=== PATIENT | male | born 1965 | race Caucasian/White ===

== ENCOUNTER → 2019-03-15 | Outpatient (CLI) | payer BC | END | disposition home or self-care (01) | LOC: LABWHC1 12:13 | PROVIDERS: ATTEND Family Medicine | DX: R07.89 Other chest pain (principal) | CPT/HCPCS: 36415; 93005 ==

== ENCOUNTER → 2020-09-17 | Outpatient (CLI) | payer BC ==
--- NOTE | 2020-09-17 13:50 | MR ---
EXAMINATION TYPE: MR Prostate wo/w con DATE OF EXAM: 09/17/2020 COMPARISON: None. IMAGE QUALITY: Good. INDICATION: Elevated PSA PSA: 11.4 ng/ml June 26, 2020. Recent Biopsy and Date: May 06, 2015 Pathology Report (If Applicable): Benign results. TECHNIQUE: Examination was performed using a 3T MRI without an endorectal coil. Multiparametric imaging was perf ormed with T2 mutliplanar sequences, axial diffusion weighted imaging and dynamic contrast enhanced i maging, utilizing 10 mL intravenous Gadavist gadolinium contrast. FINDINGS: There is no clinically significant cancer identified. PROSTATE VOLUME: 8.6 cm SI x 7.3 cm AP x 7.2 cm LR Vol= 236.7 cc Predicted PSA = 28.4. PSA DENSITY: 0.05 ng/ml/cc Somewhat then peripheral zone with right-sided areas of slightly indistinct hypointense signal. No in creased signal on diffusion-weighted imaging were mild to moderate hypointense signal on ADC mapping. There is markedly heterogeneous and markedly enlarged transitional zone. There is roughly 1.1 cm focu s of heterogeneous diminished signal with obscured margins on T2-weighted images in the mid zone left prostate slightly lateral aspect axial image 21 series 601. Possibly some smaller areas of low T2 si gnal. No areas of suspicious restricted diffusion. Prostate capsule is maintained. Seminal vesicles are within normal limits. No suspicious adenopathy. Some diverticula in the sigmoid colon. Urinary bladder shows mild to moderate wall thickening and wal l trabeculation. Visualized osseous structures are intact. No groin mass or adenopathy noted. IMPRESSION: Markedly enlarged prostate consistent with BPH. A focus of clinically significant cancer is not identified. Highest Assessment Category: 3 MRI Stage: T0 N0 M0 based on review of pelvic images. False negative rates for MRI range from 5-20% depending on risk profile. Assessment Categories: 1 ? Very low (clinically significant cancer is highly unlikely to be present) 2 ? Low (clinically significant cancer is unlikely to be present) 3 ? Intermediate (the presence of clinically significant cancer is equivocal) 4 ? High (clinically significant cancer is likely to be present) 5 ? Very high (clinically significant cancer is highly likely to be present)
== END | disposition home or self-care (01) ==
LOC: RADMRIMAIN 09:03
PROVIDERS: ATTEND Urology
DX: N40.0 Benign prostatic hyperplasia without lower urinary tract symptoms (principal)
CPT/HCPCS: 72197; A9585

== ENCOUNTER → 2021-10-16 | Outpatient (CLI) | payer BC ==
--- NOTE | 2021-10-17 11:09 | CT ---
EXAMINATION TYPE: CT abdomen pelvis wo/w con DATE OF EXAM: 10/16/2021 COMPARISON: None HISTORY: hematuria, left flank pian CT DLP: 2208.3 mGycm Automated exposure control for dose reduction was used. CONTRAST: CT scan of the abdomen pelvis is performed with IV Contrast, patient injected with 100 mL of Isovue 3 00. FINDINGS- LUNG BASES-subsegmental groundglass changes posteriorly lung base on the right apical atelectasis.. LIVER/GB- No gross abnormality is appreciated. PANCREAS- No gross abnormality is seen. SPLEEN- No gross abnormality is seen. ADRENALS- No gross abnormality is seen. KIDNEYS/BLADDER- Right kidney: Noncontrast imaging demonstrates a small lower pole 3 mm calculus but no hydronephrosis . Post contrast imaging demonstrates no solid or cystic mass. Left kidney: There is a lower pole calyx extending a length of 11.8 mm within the infundibulum and ca lyces of the lower pole. Adjacent 2 mm calculus also noted. No hydronephrosis. Within the anterior mid pole and posterior upper pole left kidney there is a 3 mm hypodensity too sma ll to characterize. There also is an exophytic lesion extending off the posterior margin of the mid l eft kidney measuring 6 Hounsfield units compatible with simple cyst. No definite suspicious sizable l esion seen. BOWEL- no bowel dilatation. Normal appendix. LYMPH NODES- No greater than 1cm abdominal or pelvic lymph nodes areappreciated. OSSEOUS STRUCTURES- No significant abnormality is seen. OTHER- prostate is markedly enlarged as noted by prior MRI appears heterogeneous. Correlate clinical ly. Small nodule seen adjacent to the bladder on the right in short axis VII mm May represent shotty lymph nodes. See axial image 80. This is retrospectively stable from the MRI 2020. IMPRESSION- 1. Bilateral nonobstructing nephrolithiasis as measured above. No suspicious appearing renal lesion. 2. Marked prostate enlargement and heterogeneity correlate clinically. Correlate for mild cystitis. A ssessment of bladder is limited as delayed imaging does not include any contrast within the bladder. Therefore this limits assessment for wall thickening. If there is concern for bladder abnormality cor relate with ultrasound particularly given the limitation on current exam.
== END | disposition home or self-care (01) ==
LOC: RADCTMAIN 17:43
PROVIDERS: ATTEND Urology
DX: N20.0 Calculus of kidney (principal); N40.0 Benign prostatic hyperplasia without lower urinary tract symptoms
CPT/HCPCS: 74178; Q9967

== ENCOUNTER 2021-11-06 07:09 | Day surgery (SDC) | payer BC ==
[2021-11-05 09:36] VITALS: BMI 28.8
--- NOTE | 2021-11-05 22:47 | P.GSHP ---
History of Present Illness H&P Date: 11/05/21 Chief Complaint: Hematuria The patient is a 56-year-old white male with a persistently elevated PSA level, which appears to be due to BPH. MRI 1 year ago revealed a prostate volume of 237 mL. He has undergone prostate biopsies on 3 occasions, showing no evidence of malignancy. He has recently experienced gross hematuria along with flank discomfort. A CT urogram showed a 4 mm right lower pole renal calculus, as well as a left lower pole calculus with a maximal length of 12 mm. An additional adjacent 2 mm calculus was seen. He was offered the options of observation, extracorporal shockwave lithotripsy (ESWL), and ureteroscopy with laser lithotripsy. He has elected to undergo the latter. - Genitourinary (Male) Genitourinary: Reports flank pain, Reports hematuria, Reports kidney stones Past Medical History Past Medical History: Diabetes Mellitus, GERD/Reflux Additional Past Medical History / Comment(s): kidney stones, heart murmur. Hx. of GERD. Enlarged prostate. Monoclonal antx. in 2020. History of Any Multi-Drug Resistant Organisms: None Reported Additional Past Surgical History / Comment(s): Vasectomy, Bx. of prostate Past Anesthesia/Blood Transfusion Reactions: No Reported Reaction Smoking Status: Never smoker - Past Family History Mother Family Medical History: Cancer, COPD, Diabetes Mellitus Additional Family Medical History / Comment(s): Breast Medications and Allergies Home Medications Medication Instructions Recorded Confirmed Type Insulin NPH Human Isophane 0 units SQ AC-TID 11/05/21 11/05/21 History [Novolin N Flexpen] metFORMIN HCL ER [Glucophage XR] 150 mg PO AC-SUPPER 11/05/21 11/05/21 History Allergies Allergy/AdvReac Type Severity Reaction Status Date / Time bee pollen Allergy Anaphylaxis Verified 11/05/21 09:42 Surgical - Exam - General well developed, well nourished, no distress - Respiratory normal respiratory effort - Abdomen Abdomen: soft, non tender, no guarding, no rigid, no rebound - Genitourinary Circumcised phallus with 2 condyloma noted at the right penile base. The urethral meatus is normal. The scrotum and testes are normal. - Rectum Rectum: normal sphincter tone, no masses - Psychiatric oriented to time, oriented to person, oriented to place, speech is normal, memory intact Results - Imaging CT scan - abdomen: report reviewed, image reviewed Assessment and Plan (1) Calculus of kidney Status: Acute Code(s): N20.0 - CALCULUS OF KIDNEY SNOMED Code(s): 99830583 Plan: Cystoscopy, bilateral ureteroscopy with Holmium laser lithotripsy and possible stone basketing, bilateral ureteral stent insertion. The procedures been reviewed in detail with the patient. He is aware of potential risks, which include anesthesia, bleeding, infection, and ureteral injury.
[~2021-11-06 07:09] MED LIST: LACTATED RINGERS 1,000 ML IV SCH
--- NOTE | 2021-11-06 07:27 | XR ---
EXAMINATION TYPE: XR KUB DATE OF EXAM: 11/06/2021 Comparison: CT 10/16/2021 Clinical History: 56-year-old male urology follow-up, Lithotripsy on 11/06/2021 Findings: Moderate stool burden. Nonobstructive bowel gas pattern. A 7 mm calculus within the right kidney. Approximately 4-5 clustered small calcifications left kidney measuring up to 3 mm. A series of 3 phleboliths in the left side of the pelvis. Impression: Bilateral renal calculi measuring up to 7 mm on the right. Clustered small calculi in the left measur ing up to 3 mm. Left-sided pelvic phleboliths. Moderate stool burden. The marked prostatomegaly noted on the patient's CT is not well demonstrated radiographically.
[2021-11-06] MEDS ORDERED: ONDANSETRON 4 MG/2 ML VIAL ONE (07:43)
[2021-11-06] MEDS ORDERED: DEXAMETHASONE SOD PHOSPHATE 4 MG/ML 1 ML VIAL IV ONE (07:48)
[2021-11-06 07:54] LABS: Glucose,Whole Blood 157 mg/dL (75-99)
[2021-11-06] MEDS ORDERED: KETOROLAC 15 MG/ML 1 ML VIAL ONE ×2 (08:40→14:12)
[2021-11-06] MEDS ORDERED: GLYCOPYRROLATE 0.2 MG/ML 2 ML VIAL ONE (08:40)
[2021-11-06] MEDS ORDERED: LIDOCAINE 1% INJ 10MG/ML (20 ML MDV) ONE (08:40)
[2021-11-06] MEDS ORDERED: PROPOFOL 10 MG/ML 20 ML VIAL IV ONE (08:40)
[2021-11-06] MEDS ORDERED: NALOXONE 0.4 MG/ML 1 ML VIAL ONE (08:40)
[2021-11-06] MEDS ORDERED: NEOSTIGMINE 1 MG/ML 10 ML VIAL ONE (08:40)
[2021-11-06] MEDS ORDERED: MIDAZOLAM 2 MG/2 ML VIAL ONE (08:40)
[2021-11-06] MEDS ORDERED: PHENYLEPHRINE-0.9% NACL SYG 1,000 MCG/10 ML SYRINGE ONE (08:40)
[2021-11-06] MEDS ORDERED: fentaNYL (PF) 50 MCG/ML 2 ML AMP ONE (08:40)
[2021-11-06] MEDS ORDERED: SUCCINYLCHOLINE CHLORIDE 100 MG/5 ML SYR IV ONE (08:40)
[2021-11-06] MEDS ORDERED: ROCURONIUM 10 MG/ML (5 ML VIAL) IV ONE (08:40)
[2021-11-06] MEDS ORDERED: LACTATED RINGERS 1,000 ML IV ONE (11:32)
[2021-11-06 11:56] VITALS: TEMP 97.1
[2021-11-06 12:06] VITALS: RESP 16
[2021-11-06 12:12] LABS: Glucose,Whole Blood 228 mg/dL (75-99)
[2021-11-06 13:21] VITALS: BP 172/71; PULSE 79
--- NOTE | 2021-11-07 11:42 | FL ---
EXAMINATION TYPE: FL guidance operating room DATE OF EXAM: 11/06/2021 HISTORY: Fluoroscopy time 1 minute and 15 seconds of fluoroscopy provided. IMPRESSION: 1. Fluoroscopy time.
--- NOTE | 2021-11-07 18:44 | P.OP ---
Date of Procedure: 11/06/21 Preoperative Diagnosis: Bilateral renal calculi Postoperative Diagnosis: Same Procedure(s) Performed: Cystoscopy, bilateral ureteroscopy with Holmium laser lithotripsy and stone basketing, bilateral ureteral stent insertion Anesthesia: JANET Surgeon: Esequiel Malave Estimated Blood Loss (ml): 20 IV fluids (ml): 900 Pathology: other (Calculus fragments, sent for chemical analysis) Condition: stable Disposition: PACU Indications for Procedure: The patient is a 56-year-old white male with a persistently elevated PSA level, which appears to be due to BPH. MRI 1 year ago revealed a prostate volume of 237 mL. He has undergone prostate biopsies on 3 occasions, showing no evidence of malignancy. He has recently experienced gross hematuria along with flank discomfort. A CT urogram showed a 4 mm right lower pole renal calculus, as well as a left lower pole calculus with a maximal length of 12 mm. An additional adjacent 2 mm calculus was seen. He was offered the options of observation, extracorporal shockwave lithotripsy (ESWL), and ureteroscopy with laser lithotripsy. He has elected to undergo the latter. Operative Findings: Right renal calculus, removed completely. Multiple left lower pole renal calculi, removed completely. Description of Procedure: The patient was taken to the operating room and placed in the dorsolithotomy position, with legs supported in Teja stirrups. The external genitalia was prepped and draped sterilely. The 30 lens was used to introduce the 21-[place]an Bowers cystoscopic sheath through the urethra and into the bladder under direct vision. The prostatic urethra showed evidence of considerable lateral lobe enlargement, along with a middle lobe that extends intravesically. The bladder was examined in its entirety. Both ureteral orifices were difficult to identify as they were obscured by the median lobe. However, they were of normal anatomic location and configuration, and clear urine effluxed from both. No tumors or foreign bodies were seen. A 0.038 inch Glidewire was passed through the cystoscope. The right ureteral orifice was cannulated, and the Glidewire was advanced up to the renal pelvis. The cystoscope was removed, and an 11/13-[place]an ureteral access catheter was passed over the wire, up to the proximal ureter. The flexible ureteroscope was then passed through the ureteral access catheter sheath and advanced under dir ect vision up to the right kidney. The 4 mm calculus was identified within a lower pole calyx. A 1.9-[place] nitinol basket was used to grasp the calculus and reposition it into an upper pole calyx. The 200 micron Holmium laser probe was passed through the ureteroscope, and lithotripsy was performed. The calculus was dense, and was more amenable to fragmenting and dusting. All calculus fragments were removed using the nitinol basket. As the ureteroscope was withdrawn, the ureter was inspected and showed no evidence of trauma. The Glidewire was passed through the ureteral access catheter sheath, which was removed. The Glidewire was backloaded into the cystoscope, which was passed into the bladder. A 26 cm, 4.8-[place] double-J ureteral stent was placed over the wire. Proper stent positioning was verified fluoroscopically and endoscopically. The string was left attached to the stent. An identical procedure was performed on the left side. Within a lower pole calyx, approximately 6 calculi were identified measuring up to 7 mm in size. These calculi were fragmented in situ, with larger calculus fragments removed via Stone basketing. The largest calculus was repositioned into the renal pelvis and fragmented there. Lithotripsy was continued until there were no residual calculus fragments exceeding 1 mm in size. A ureteral stent was placed, as it was on the contralateral side. The bladder was emptied and the cystoscope removed. The strings attached to the stents were taped to the patient's penis using a Tegaderm dressing. The patient tolerated the procedure well and was taken to the recovery room in stable condition. [facility] [place], [place] Report: Procedure Acuity: Elective Stone Size and Location: 4 mm right lower pole renal calculus. Multiple left lower pole renal calculi, largest 7 mm. Ureteral Dilation: No Ureteral Access Sheath Used: Yes Stone Sent for Analysis: Yes All Stones/Fragments Were Removed with a Basket: Yes Complications: No Preoperative Antibiotics Given: Yes Stent Placed: Yes If Stent Placed, Was String Left Attached: Yes If Stent Placed, When is it to be Removed: 1 week Discharge Medications: Toradol, tamsulosin
== END 2021-11-06 14:57 | disposition home or self-care (01) ==
LOC: OR 07:09
PROVIDERS: ATTEND Urology
DX: N20.0 Calculus of kidney (principal); E11.9 Type 2 diabetes mellitus without complications; K21.9 Gastro-esophageal reflux disease without esophagitis; N40.0 Benign prostatic hyperplasia without lower urinary tract symptoms; Z79.4 Long term (current) use of insulin; Z79.84 Long term (current) use of oral hypoglycemic drugs; Z91.030 Bee allergy status; Z98.52 Vasectomy status; Z82.5 Family history of asthma and other chronic lower respiratory diseases; Z83.3 Family history of diabetes mellitus; Z80.9 Family history of malignant neoplasm, unspecified
CPT/HCPCS: 82365; 74018; 52356; C2625; C1758 ×4; C1769; J2250; J1100; J2310; J2710; J0690; J2405; J2001; J3010; J1885; J2370; J0330; J2704

== ENCOUNTER → 2022-06-30 | Outpatient (CLI) | payer BC ==
--- NOTE | 2022-06-30 19:19 | MR ---
EXAMINATION TYPE: MR Prostate wo/w con DATE OF EXAM: 06/30/2022 9:33 AM COMPARISON: CT abdomen pelvis 10/16/2021. CLINICAL INDICATION:Male, 56 years old with history of R97.20 ELEVATED PSA; TECHNIQUE: Multi-planar, multi-sequence imaging of the pelvis is performed prior to and following the uncomplicated administration of bolus intravenous gadolinium. CONTRAST: 10 Gadavist Interpretive Criteria: PI-RADS v2.1 SERUM PSA: 17.2 on 05/15/2022 SURGICAL PATHOLOGY: Biopsy report 11/24/2013 FINDINGS: Prostatic dimensions: 7.8 x 9.7 x 6.7 cm. Ellipsoid Volume:265.42 (PSA density=0.06 ng/mL/mL) CENTRAL GLAND (Central and Transition Zones/CZ+TZ): Marked hypertrophy with multiple bilateral, heterogenous appearing hypertrophic stromal nodules, with out suspicious lesion. Median lobe hypertrophy with protrusion into the base of the bladder. (PI-RAD S 2) PERIPHERAL ZONE (PZ): Thin secondary to central gland hypertrophy changes with wedgelike areas of low ADC, and low T2 signa l, No evidence of masslike abnormality, or localized perfusional hypervascularity, to further suggest a focus of clinically significant prostate cancer. Extruded left lateral posterior mid gland/base BP H nodule (PI-RADS 2) SEMINAL VESICLES (SV): Symmetric and unremarkable. PERIPROSTATIC TISSUES: Unremarkable. LYMPH NODES: Borderline enlarged right external iliac lymph node measuring up to 10 mm in short axis series 201 im age 22. Left internal iliac lymph node measuring 7 mm in short axis series 201 image 29. REMAINING PELVIS: Incompletely distended urinary bladder trabeculations. This is likely secondary to chronic bladder ob struction.. No abnormal free or organized intrapelvic fluid collection. No pathologic bowel dilation or mural thickening. Scattered colonic diverticula. OSSEOUS STRUCTURES: No suspicious osseous abnormality. IMPRESSION: 1. No specific features for high-risk prostate cancer. There are numerous circumscribed transition zo ne nodules and low-risk peripheral zone abnormalities (PI-RADS 2). 2. Marked BPH, estimated gland volume 265 mL. 3. Nonspecific prominent pelvic lymph nodes which are similar back to 10/16/2021 CT abdomen pelvis. Wi th regular
== END | disposition home or self-care (01) ==
LOC: RADMRIMAIN 08:18
PROVIDERS: ATTEND Urology
DX: N40.0 Benign prostatic hyperplasia without lower urinary tract symptoms (principal); R97.20 Elevated prostate specific antigen [PSA]
CPT/HCPCS: 72197; A9585

== ENCOUNTER → 2022-11-13 | Outpatient (CLI) | payer SELFPAY ==
[2022-11-14 02:14] LABS: African American GFR (CKD) 113.3 (60.0-200.0); Anion Gap 8.6 mmol/L (10.00-18.00); Blood Urea Nitrogen 19.2 mg/dL (9.0-27.0); Carbon Dioxide 28.4 mmol/L (20.0-27.5); Non-African American GFR(CKD) 97.8 (60.0-200.0); Potassium 4.7 mmol/L (3.5-5.5)
[2022-11-14 02:27] LABS: HCT 45.3 % (39.6-50.0); HGB 14.8 g/dL (13.0-17.0); MCH 29.7 pg (27.0-32.0); MCHC 32.7 g/dL (32.0-37.0); MCV 90.8 fL (80.0-97.0); Mean Platelet Volume 9.8 fL (9.5-12.2); NRBC Per 100 WBC 0 /100 WBCS (0.0-0.0); Platelet Count 281 X 10*3/uL (140-440); RBC 4.99 X 10*6/uL (4.40-5.60); RDW 13.1 % (11.5-14.5); WBC 7.86 X 10*3/uL (4.50-10.00)
== END | disposition home or self-care (01) ==
LOC: LABPAT 15:54
PROVIDERS: ATTEND Internal Medicine
DX: Z01.818 Encounter for other preprocedural examination (principal); R94.39 Abnormal result of other cardiovascular function study; R07.9 Chest pain, unspecified
CPT/HCPCS: 80051; 82565; 84520; 85027

== ENCOUNTER 2022-11-19 10:34 | Day surgery (SDC) | payer BC ==
[2022-11-17 09:47] VITALS: BMI 32.1
[~2022-11-19 10:34] MED LIST changes: +ALPRAZolam 0.25 MG TAB PO PRN; +ALPRAZolam 0.5 MG TAB PO PRN; +ASPIRIN 325 MG TAB PO STA; +ATORVASTATIN 80 MG TAB PO STA; +HEPARIN SODIUM,PORCINE 10,000 UNIT in SODIUM CHLORIDE 0.9% 1,000 ML IRRIGATION PRN; +HEPARIN SODIUM,PORCINE 2,500 UNIT in SODIUM CHLORIDE 0.9% 250 ML IRRIGATION PRN; -LACTATED RINGERS 1,000 ML IV SCH; +NITROGLYCERIN SL TABS 0.4 MG TAB SUBLINGUAL PRN; +SODIUM CHLORIDE 0.9% 1,000 ML in EMPTY BAG 1 BAG IV SCH
[2022-11-19] MEDS ORDERED: SODIUM CHLORIDE 0.9% 1,000 ML IV ONE (10:44)
[2022-11-19 11:06] LABS: Glucose,Whole Blood 161 mg/dL (70-110)
[2022-11-19 11:09] VITALS: RESP 16; TEMP 96.9
[2022-11-19] MEDS ORDERED: fentaNYL (PF) 50 MCG/ML 2 ML AMP ONE (11:55)
[2022-11-19] MEDS ORDERED: VERAPAMIL 2.5 MG/ML 2 ML AMP ONE (11:55)
[2022-11-19] MEDS ORDERED: HEPARIN SODIUM 1,000 UN/ML (10ML VL) ONE (11:57)
[2022-11-19] MEDS ORDERED: fentaNYL (PF) 50 MCG/1 ML VIAL IVP ONE (12:05)
[2022-11-19] MEDS ORDERED: MIDAZOLAM 2 MG/2 ML VIAL IVP ONE (12:05)
[2022-11-19] MEDS ORDERED: LIDOCAINE 1% INJ 10MG/ML (5 ML VIAL-PF) SQ ONE (12:06)
[2022-11-19] MEDS ORDERED: VERAPAMIL SYRINGE (5 MG/10 ML) INTRAARTER ONE (12:12)
[2022-11-19] MEDS ORDERED: HEPARIN SODIUM 1,000 UN/ML (10ML VL) IV ONE (12:14)
[2022-11-19] MEDS ORDERED: IOPAMIDOL-370 200ML BTL INJ ONE (12:18)
[2022-11-19 16:20] VITALS: BP 135/70; PULSE 66
--- NOTE | 2022-11-19 16:38 | P.CARDCATH ---
Description of Procedure: PROCEDURES PERFORMED: Left heart catheterization, bilateral coronary angiography INDICATION: Abnormal stress test CONSENT:I have discussed the risks, benefits and alternative therapies for the above-mentioned procedure and for both sedation/analgesia as well as necessary blood product administration, if indicated, as they pertain to this patient. The patient has indicated understanding and acceptance of the risks and procedures discussed. PROCEDURE: After the risks, benefits and alternatives of the above mentioned procedure explained in detail with the patient, informed consent was obtained. Patient was taken to the catheterization lab and prepped and draped in usual fashion. 1% lidocaine was used to anesthetize the right radial artery. A 6- Bahamian sheath was placed in the right radial artery using modified Seldinger technique. Left coronary angiography was performed with a 5-B[place]amian JL 3.5 catheter and right coronary angiography was performed with a 5-[place]ian JR5 catheter in various views. A 5-[place]ian FR5 catheter was inserted into the left ventricle and pressure measurements were obtained. The right radial sheath was removed and a TR band was placed with hemostasis achieved. The patient tolerated the procedure well. Patient was transported back to the post catheterization holding area in stable condition. Conscious Sedation: Patient was monitored under the direct supervision of myself for conscious sedation using Versed and fentanyl for a total duration of 19 minutes HEMODYNAMICS: Aorta: 119/57 LV: 121/4, LVEDP 8 SELECTIVE CORONARY ARTERIOGRAPHY: LEFT MAIN: The left main is a large caliber vessel which bifurcates into the LAD and circumflex. There is no significant stenosis. LEFT ANTERIOR DESCENDING CORONARY ARTERY: LAD is a large caliber vessel which wraps around to the apex. There is mild bridging of the mid LAD. There is no significant stenosis. LEFT CIRCUMFLEX CORONARY ARTERY: Left circumflex is a moderate caliber vessel without significant stenosis. RIGHT CORONARY ARTERY: The right coronary artery is a large caliber vessel which gives off a PDA and PLV branch and is the dominant vessel. There is no significant stenosis. FINAL IMPRESSION: 1. Normal coronary arteries as described above. 2. Normal left sided filling pressures PLAN: 1. Aggressive risk factor modification per most recent ACC/AHA guidelines. 2. Follow-up in the office in 1-2 weeks.
== END 2022-11-19 15:40 | disposition home or self-care (01) ==
LOC: CATHCVL 10:34
PROVIDERS: ATTEND Internal Medicine
DX: R94.39 Abnormal result of other cardiovascular function study (principal); I51.7 Cardiomegaly; I45.10 Unspecified right bundle-branch block; I44.4 Left anterior fascicular block; E11.9 Type 2 diabetes mellitus without complications; I77.819 Aortic ectasia, unspecified site; E78.5 Hyperlipidemia, unspecified; Z79.4 Long term (current) use of insulin; Z79.84 Long term (current) use of oral hypoglycemic drugs; Z79.82 Long term (current) use of aspirin; Z79.899 Other long term (current) drug therapy; Z82.49 Family history of ischemic heart disease and other diseases of the circulatory system
CPT/HCPCS: 93458; 99152; C1769; C1894; J2250; J2001; J1644; J3010; Q9967

== ENCOUNTER → 2022-11-26 | Outpatient (CLI) | payer BC | END | disposition home or self-care (01) | LOC: LABWHC1 10:27 | PROVIDERS: ATTEND Urology | DX: R97.20 Elevated prostate specific antigen [PSA] (principal) | CPT/HCPCS: 36415; 84153 ==

== ENCOUNTER → 2023-05-19 | Outpatient (CLI) | payer SELFPAY ==
[2023-05-19 19:29] LABS: Chol/HDL Ratio 2.29 Ratio; LDL Cholesterol,Calculated 37.2 mg/dL (0.0-131.0); VLDL Calculation 10.68 mg/dL (5.00-40.00)
== END | disposition home or self-care (01) ==
LOC: LABWHC1 12:44
PROVIDERS: ATTEND Internal Medicine Clinical Cardiac Electrophysiology
DX: E78.5 Hyperlipidemia, unspecified (principal); R97.20 Elevated prostate specific antigen [PSA]
CPT/HCPCS: 36415; 80061; 84153

== ENCOUNTER → 2023-06-24 | Outpatient (CLI) | payer BC ==
[2023-06-25 02:28] LABS: ALT 21 U/L (10-49); AST 17 U/L (14-35); Albumin 4.4 g/dL (3.8-4.9); Albumin/Globulin Ratio 1.83 Ratio (1.60-3.17); Alkaline Phosphatase 83 U/L (41-126); BUN/Creat Ratio 27.14 Ratio (12.00-20.00); Calcium 9.3 mg/dL (8.7-10.3); Carbon Dioxide 26.9 mmol/L (21.6-31.8); Chloride 104 mmol/L (96-109); Globulin 2.4 g/dL (1.6-3.3); Glucose 216 mg/dL (70-110); Potassium 4.6 mmol/L (3.5-5.5); Sodium 140 mmol/L (135-145); Total Bilirubin 0.5 mg/dL (0.3-1.2); Total Protein 6.8 g/dL (6.2-8.2)
[2023-06-25 02:57] LABS: Basophils # (A) 0.04 X 10*3/uL (0.00-0.10); Basophils % (A) 0.6 %; Eosinophils # (A) 0.18 X 10*3/uL (0.04-0.35); Eosinophils % (A) 2.6 %; HCT 47.5 % (39.6-50.0); HGB 15.1 g/dL (13.0-17.0); Lymphocytes # (A) 2.09 X 10*3/uL (0.90-5.00); Lymphocytes % (A) 30.2 %; MCH 29.2 pg (27.0-32.0); MCHC 31.8 g/dL (32.0-37.0); MCV 91.9 FL (80.0-97.0); Mean Platelet Volume 9.2 FL (9.5-12.2); Monocytes # (A) 0.64 X 10*3/uL (0.20-1.00); Monocytes % (A) 9.2 %; NRBC Per 100 WBC 0 X 10*3/uL (0.00-0.01); Neutrophils # (A) 3.96 X 10*3/uL (1.80-7.70); Neutrophils % (A) 57.1 %; Platelet Count 279 X 10*3/uL (140-440); RBC 5.17 X 10*6/uL (4.40-5.60); RDW 13.6 % (11.5-14.5); WBC 6.93 X 10*3/uL (4.50-10.00)
[2023-06-25 04:16] LABS: Appearance,Urine Clear (Clear); Bacteria,Urine Trace; Bilirubin,Urine Negative (Negative); Blood,Urine Moderate (Negative); Color,Urine Yellow (Yellow); Ketones,Urine Negative (Negative); Nitrite,Urine Negative (Negative); Specific Gravity,Urine >1.035 (1.001-1.030)
== END | disposition home or self-care (01) ==
LOC: LABPAT 13:17
PROVIDERS: ATTEND Urology
DX: Z01.812 Encounter for preprocedural laboratory examination (principal); N40.1 Benign prostatic hyperplasia with lower urinary tract symptoms; N13.8 Other obstructive and reflux uropathy; R31.29 Other microscopic hematuria
CPT/HCPCS: 80053; 81001; 85025; 86850; 86900; 86901; 87086

== ENCOUNTER 2023-07-01 05:43 | Day surgery (SDC) | payer BC ==
[2023-06-28 09:18] VITALS: BMI 29.5
--- NOTE | 2023-06-28 11:43 | P.HPIHPCON ---
History of Present Illness H&P Date: 06/28/23 Chief Complaint: BPH This is a 57-year-old male with history of a 265 g prostate. He is symptomatic from his prostatic enlargement. Option of a robotic simple prostatectomy was discussed with him in detail. Aware of the risk which includes but not limited to bleeding, infection, urinary incontinence, erectile dysfunction, retrograde ejaculation, and injury to nearby organs. Risk of anesthesia was also discussed. He understood all the risk and agreed to proceed. Consent for Procedure: I have explained the operation/procedure to the patient, including the risks, benefits, side effects, alternative therapies (including not receiving the proposed treatment or service), the likelihood of the patient achieving his/her goals, and potential recuperation problems for the procedure/sedation/analgesia, as well as any blood products, if indicated. I also explained to the patient the risks, benefits and side effects of the alternatives, as well as the risks related to not receiving the proposed procedure, care, treatment, or services. 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 of prostate, lithotripsy Past Anesthesia/Blood Transfusion Reactions: No Reported Reaction Additional Past Anesthesia/Blood Transfusion Reaction / Comment(s): after lithotripsy pt had jaw pain for about a year Past Psychological History: No Psychological Hx Reported Smoking Status: Never smoker Past Alcohol Use History: None Reported Past Drug Use History: None Reported - Past Family History Mother Family Medical History: Cancer, COPD, Diabetes Mellitus, Myocardial Infarction (DC) Additional Family Medical History / Comment(s): Breast cancer. Medications and Allergies Home Medications Medication Instructions Recorded Confirmed Type Tamsulosin [Flomax] 0.4 mg PO DAILY #14 cap 11/06/21 06/28/23 Rx Insulin Aspart [NovoLOG Flexpen] 0 units SQ TID-W/MEALS PRN 11/17/22 06/28/23 History Insulin Glargine/Lixisenatide 19 units SQ W/SUPPER 11/17/22 06/28/23 History [Soliqua 100 Unit-33 Mcg/ml Pen] Losartan [Cozaar] 50 mg PO DAILY 11/17/22 06/28/23 History Rosuvastatin [Crestor] 20 mg PO DAILY 11/17/22 06/28/23 History metFORMIN HCL ER [Glucophage XR] 750 mg PO DAILY 11/17/22 06/28/23 History Empagliflozin [Jardiance] 25 mg PO DAILY 06/28/23 06/28/23 History Allergies Allergy/AdvReac Type Severity Reaction Status Date / Time bee pollen Allergy Anaphylaxis Verified 06/28/23 08:53 Surgical - Exam - General no distress, no pain - Eyes normal ocular movement, no pale - ENT normal nares, normal mucosa - Respiratory normal expansion, normal respiratory effort - Abdomen Abdomen: soft, non tender - Psychiatric oriented to time, oriented to person, oriented to place Assessment and Plan Assessment: OR for a robotic simple prostatectomy
[2023-07-01] MEDS ORDERED: ONDANSETRON 4 MG/2 ML VIAL IVP ONE (06:09)
[2023-07-01] MEDS ORDERED: HYDROmorphone 0.5 MG/0.5 ML SYRINGE IVP PRN (06:09)
[2023-07-01] MEDS ORDERED: DEXAMETHASONE SOD PHOSPHATE 4 MG/ML 1 ML VIAL IV ONE (06:09)
[2023-07-01] MEDS: LACTATED RINGERS 1,000 ML IV SCH (06:46)
[2023-07-01] MEDS ORDERED: MIDAZOLAM 2 MG/2 ML VIAL IVP ONE (06:49)
[2023-07-01 07:17] LABS: Glucose,Whole Blood 102 mg/dL (70-110)
[2023-07-01] MEDS ORDERED: ROPIVACAINE 5 MG/ML 30 ML VIAL ONE (07:22)
[2023-07-01] MEDS ORDERED: SODIUM CHLORIDE 0.9% (PF) 10 ML VIAL ONE (07:22)
[2023-07-01] MEDS ORDERED: ROCURONIUM 10 MG/ML (5 ML VIAL) IV ONE (07:22)
[2023-07-01] MEDS ORDERED: NEOSTIGMINE 1 MG/ML 10 ML VIAL ONE (07:22)
[2023-07-01] MEDS ORDERED: fentaNYL (PF) 50 MCG/ML 2 ML AMP ONE (07:22)
[2023-07-01] MEDS ORDERED: MIDAZOLAM 2 MG/2 ML VIAL ONE (07:22)
[2023-07-01] MEDS ORDERED: PROPOFOL 10 MG/ML 20 ML VIAL IV ONE (07:22)
[2023-07-01] MEDS ORDERED: KETAMINE HCL IN 0.9 % NACL 50 MG/5 ML SYRINGE ONE (07:22)
[2023-07-01] MEDS ORDERED: GLYCOPYRROLATE 0.2 MG/ML 2 ML VIAL ONE (07:22)
[2023-07-01] MEDS ORDERED: LIDOCAINE 1% INJ 10MG/ML (20 ML MDV) ONE (07:22)
[2023-07-01] MEDS ORDERED: SUCCINYLCHOLINE CHLORIDE 200 MG/10 ML VIAL IV ONE (07:22)
[2023-07-01] MEDS ORDERED: HYDROmorphone (PF) 1 MG/ML ONE (07:22)
[2023-07-01] MEDS ORDERED: BUPIVACAINE (PF) 0.25% 30 ML VIAL SQ ONE (07:29)
[2023-07-01] MEDS ORDERED: ONDANSETRON 4 MG/2 ML VIAL IVP PRN (07:41)
[2023-07-01] MEDS ORDERED: ACETAMINOPHEN TAB 325 MG TAB PO PRN (07:41)
[2023-07-01] MEDS ORDERED: HYDROmorphone 1 MG/ML 1 ML SYRINGE IVP PRN (07:41)
[2023-07-01] MEDS ORDERED: HYDROcodone/APAP 5-325MG 1 EACH TAB PO PRN (07:42)
[2023-07-01] MEDS ORDERED: LOSARTAN 50 MG TAB PO SCH ×2 (09:00→17:30)
[2023-07-01] MEDS ORDERED: LACTATED RINGERS 1,000 ML IV ONE (09:44)
--- NOTE | 2023-07-01 11:39 | P.OP ---
Date of Procedure: 07/01/23 Preoperative Diagnosis: BPH Postoperative Diagnosis: same Procedure(s) Performed: Robotic simple prostatectomy Implants: none Anesthesia: KYLIEA Surgeon: Russell Chowdhury Reducing Machine Operator #1: Fitz Chang Estimated Blood Loss (ml): 600 Pathology: other (Prostate adenoma) Condition: stable Disposition: PACU Indications for Procedure: This is a 57-year-old male with history of a 265 g prostate. He is symptomatic from his prostatic enlargement. Option of a robotic simple prostatectomy was discussed with him in detail. Aware of the risk which includes but not limited to bleeding, infection, urinary incontinence, erectile dysfunction, retrograde ejaculation, and injury to nearby organs. Risk of anesthesia was also discussed. He understood all the risk and agreed to proceed. Description of Procedure: After preoperative antibiotics were started, the patient was taken to the operating room. Anesthesia was induced and the patient was placed in a supine position with adequate padding of the pressure points, shoulders, back, legs and arms. He was then prepped and draped in the standard fashion. A critical pause was performed using two patient identifiers. A 16F adkins catheter was placed to gravity drainage. A pneumoperitoneum was obtained using a Veress needle, after pneumoperitoneum was obtained a 8 mm camera port was placed. Under direct vision a 8mm robotic ports was placed lat eral to each rectus slightly below the camera port. The left iliac fossa 8mm port was placed. The right fleet administrative assistant right iliac fossa 12mm port and right paramedian 5mm portwere placed. After the patient was placed in the trendelenberg position, the robot was then docked to the 8mm robotic ports and then each robotic arm and tower was checked in relation to the patient's legs and hands to avoid inadvertent compression. The peritoneal cavity was inspected. Adhesions were taken down along the left lower quadrant An inverted U-shaped incision began laterally to the left medial umbilical lig ament and extended high across the midline to the right umbilical ligament. The limbs of the "U" extended to the level of the vasa on both sides. We next developed the preperitoneal space and the space of Retzius. Cautery was used to dissected the bladder away from the prostate, the incision was made in close proximity to the prostate, and incision was extended laterally and at this point the plane between the adenoma and the surgical capsule is identified. Both ureteral orifices were identified and neither was injured during the dissection . The adenoma was dissected off of the capsule by combination of blunt dissection and minimum cautery. dissection was initially started along the anterior surface and posterior surface of adenoma, and this was carried laterally. The dissection was carried to the apex, at this point the urethral-prostatic junction was visualized and the prostate was transected at the junction. Prostate was hypervascular. Prostate adenoma was placed in an endocatch bag . A 9and 9 inch 3-0 V-Lock suture was used to anastomose the urethra and bladder, starting at the 6:00 posterior position. Mucosa was secured in every stitch, to ensure a mucosa to mucosa anastomosis. The stitch was regularly cinched and the anastomosis tightened. . The 20 Fr Adkins catheter was advanced, the bladder filled, and the anastomosis was tested. Anastomsis was watertight at 150 mL. balloon was inflated to 10 mL The robot was undocked. specimen was extracted from the supraumbilical incision. The periumbilical fascia was closed with 1-0-PDS suture in figure of 8 fashion. All ports were closed with a subcuticular 4-0 monocryl and Dermabond. Sponge, instrument, and needle counts were correct at the end of the case x2. The patient tolerated the surgery well and without complication. He awoke without difficulty and was taken to the recovery room in stable conditi
[2023-07-01 12:21] LABS: Glucose,Whole Blood 132 mg/dL (70-110)
[2023-07-01] MEDS ORDERED: ATORVASTATIN 40 MG TAB PO SCH ×2 (15:00→17:30)
[2023-07-01] MEDS: SODIUM CHLORIDE 0.9% 1,000 ML IV SCH (15:15)
[2023-07-01] MEDS: KETOROLAC 15 MG/ML 1 ML VIAL IVP SCH ×2 (15:34→23:09)
[2023-07-01] MEDS: HEPARIN SODIUM,PORCINE 5,000 UNIT/ML 1 ML VIAL SQ SCH ×2 (15:34→23:09)
[2023-07-01] MEDS ORDERED: DEXTROSE 50% SYRINGE 50 ML IVP PRN ×2 (15:46)
[2023-07-01 17:04] LABS: Glucose,Whole Blood 115 mg/dL (70-110)
[2023-07-01] MEDS ORDERED: NON FORMULARY DRUG (Insulin Glargine/Lixisenatide [Soliqua 100 Unit-33 Mcg/Ml Pen] 3 ML In SQ SCH (17:30)
[2023-07-01] MEDS: metFORMIN 500 MG TAB PO SCH (17:40)
[2023-07-01] MEDS: INSULIN ASPART (NovoLOG) 100 UNIT/ML VIAL SQ SCH ×2 (17:41→21:11)
--- NOTE | 2023-07-01 18:56 | P.ANPRN ---
Procedure Note - Anesthesia - Nerve Block Performed Bilateral Erector Spinae Single Time Out Performed: Yes Date of Procedure: 07/01/23 Procedure Start Time: 06:51 Procedure Stop Time: 06:55 Location of Patient: PreOp Indication: Acute Post-Operative Pain, Requested by Surgeon Sedation Type: Sedate with meaningful contact maintained Preparation: Sterile Prep Position: Prone Needle Types: Pajunk Needle Gauge: 21 Ultrasound used to visualize needle placement: Yes Ultrasound used to observe medication spread: Yes Blood Aspirated: No Pain Paresthesia on Injection Noted: No Resistance on Injection: Normal Image Stored and Saved: Yes Events: Uneventful and Well Tolerated (Ropivacaine 0.5% 15 mL plus normal saline 10 mL plus dexamethasone 4 mg given bilaterally at L1)
[2023-07-01 20:29] LABS: Glucose,Whole Blood 173 mg/dL (70-110)
[2023-07-02] MEDS: SODIUM CHLORIDE 0.9% 1,000 ML IV SCH (04:20)
[2023-07-02] MEDS: LACTATED RINGERS 1,000 ML IV SCH (04:49)
[2023-07-02] MEDS: KETOROLAC 15 MG/ML 1 ML VIAL IVP SCH (05:53)
[2023-07-02 07:02] LABS: Glucose,Whole Blood 105 mg/dL (70-110)
[2023-07-02 08:04] VITALS: BP 102/54; PULSE 80; RESP 18; TEMP 98.5
--- NOTE | 2023-07-02 08:07 | P.DS ---
Providers Attending physician: Russell Chowdhury MD Primary care physician: [facility] Course: The patient was admitted the hospital 07/01/23 for a robotic-assisted suprapubic prostatectomy. He underwent this without difficulty. Postoperatively his pain is been minimal. His urine is clear. He is ambulating tolerating regular diet. His vital signs are stable. He is ready for discharge home. In care of his family regular diet limited activity. He is given a prescription of Toradol. He'll follow-up in the office with on 07/09/23 Patient Condition at Discharge: Good Plan - Discharge Summary Discharge Rx Participant: No New Discharge Prescriptions: New Ketorolac [Toradol] 10 mg PO Q6HR PRN #14 tab PRN Reason: Pain Control No Action Tamsulosin [Flomax] 0.4 mg PO DAILY #14 cap Insulin Glargine/Lixisenatide [Soliqua 100 Unit-33 Mcg/ml Pen] 19 units SQ W/SUPPER Insulin Aspart [NovoLOG Flexpen] 0 units SQ TID-W/MEALS PRN PRN Reason: Blood Sugar - High metFORMIN HCL ER [Glucophage XR] 750 mg PO DAILY Losartan [Cozaar] 50 mg PO DAILY Rosuvastatin [Crestor] 20 mg PO DAILY Empagliflozin [Jardiance] 25 mg PO DAILY Discharge Medication List Tamsulosin [Flomax] 0.4 mg PO DAILY #14 cap 11/06/21 [Rx] Insulin Aspart [NovoLOG Flexpen] 0 units SQ TID-W/MEALS PRN 11/17/22 [History] Insulin Glargine/Lixisenatide [Soliqua 100 Unit-33 Mcg/ml Pen] 19 units SQ W/SUPPER 11/17/22 [History] Losartan [Cozaar] 50 mg PO DAILY 11/17/22 [History] Rosuvastatin [Crestor] 20 mg PO DAILY 11/17/22 [History] metFORMIN HCL ER [Glucophage XR] 750 mg PO DAILY 11/17/22 [History] Empagliflozin [Jardiance] 25 mg PO DAILY 06/28/23 [History] Ketorolac [Toradol] 10 mg PO Q6HR PRN #14 tab 07/02/23 [Rx] Follow up Appointment(s)/Referral(s): Russell Chowdhury MD [STAFF PHYSICIAN] - 07/09/23 (Home with Londono catheter) Discharge Disposition: HOME SELF-CARE
[2023-07-02] MEDS ORDERED: DAPAGLIFLOZIN PROPANEDIOL 10 MG TABLET PO SCH (09:00)
[2023-07-02] MEDS: metFORMIN 500 MG TAB PO SCH (09:08)
[2023-07-02] MEDS: INSULIN ASPART (NovoLOG) 100 UNIT/ML VIAL SQ SCH (09:08)
[2023-07-02] MEDS: HEPARIN SODIUM,PORCINE 5,000 UNIT/ML 1 ML VIAL SQ SCH (09:08)
== END 2023-07-02 11:03 | disposition home or self-care (01) ==
LOC: OR 05:43 → 5NMEDONC 11:39 → OR 07-02 11:03
PROVIDERS: ATTEND Urology
DX: N40.1 Benign prostatic hyperplasia with lower urinary tract symptoms (principal); G89.18 Other acute postprocedural pain; E11.9 Type 2 diabetes mellitus without complications; K21.9 Gastro-esophageal reflux disease without esophagitis; I10 Essential (primary) hypertension; E78.5 Hyperlipidemia, unspecified; Z83.3 Family history of diabetes mellitus; Z82.49 Family history of ischemic heart disease and other diseases of the circulatory system; Z80.3 Family history of malignant neoplasm of breast
CPT/HCPCS: 55867; 64999; 88307; 83036; C1762; J2250; J0330; J1644 ×2; J1100; J2710; J0690; J2405; J2001; J3010; J1170; J2795; J1885 ×2; J2704; J0665